=== PATIENT | female | born 1950 | race Caucasian/White ===

== ENCOUNTER → 2017-07-05 | Day surgery (SDC) | payer MEDICARE, OTHER ==
[2017-07-04 11:04] LABS: BASOPHILS % 0.5 % (0.0-1.0); EOSINOPHILS # (AUTO) 0.1 (0.0-0.4); EOSINOPHILS % 1.3 % (0.0-6.0); HEMATOCRIT 39.7 % (34.2-44.1); HEMOGLOBIN 13.3 g/dL (12.0-16.0); LYMPHOCYTES # (AUTO) 1.4 (1.0-3.2); LYMPHOCYTES % 35.5 % (18.0-39.1); MEAN CORPUSCULAR HEMOGLOBIN 31.4 pg (28-32); MEAN CORPUSCULAR HGB CONC 33.5 g/dL (31-35); MEAN CORPUSCULAR VOLUME 93.9 fL (81-99); MONOCYTES # (AUTO) 0.3 (0.2-0.8); MONOCYTES % 7.3 % (4.4-11.3); NEUTROPHILS # (AUTO) 2.1 (2.1-6.9); NEUTROPHILS % 55.1 % (38.7-80.0); PLATELET COUNT 196 x10e3/uL (140-360); RED BLOOD COUNT 4.23 x10e6/uL (3.6-5.1); RED CELL DISTRIBUTION WIDTH 13.3 % (11.7-14.4)
[~2017-07-05] MED LIST: BUPIVACAINE HCL 0.5% 10ML MPF VIAL INJ ONE; CEFAZOLIN SOD 1 GM VIAL ONE; CYMBALTA60 MG PO; DEXAMETHASONE SOD PHOS INJ 4 MG/ML VIAL ONE; EPHEDRINE SULFATE INJ 50 MG/10 ML SYR ONE; EYE LUBRICANT OPTH OINT 3.5GM TUBE OP ONE; FENTANYL CITRATE/PF 100MCG/2 ML INJ ONE; LIDOCAINE 1% W/EPINEPHRINE 20 ML VIAL ONE; LIDOCAINE HCL 2% LOCAL INJ 5 ML SDV VIAL INJ ONE; MIDAZOLAM HCL 2 MG/2 ML VIAL ONE; MUPIROCIN 2% OINT 22 GM TUBE ONE; ONDANSETRON HCL INJ 2 MG/ML VIAL ONE; POVIDONE IODINE 5% (OPTH) 30 ML BTL ONE; PROPOFOL IV EMULSION 10 MG/ML 20 ML VIAL ONE; SEVOFLURANE INHAL SOLN 250 ML PEN BTL ONE
--- OUTSIDE RECORDS SUMMARY | 2017-07-05 07:13 | XMS REPORT ---
Author Author [facility] Address Unknown Phone Unavailable Care Team Providers Care Circ[employer] Supervisor Name Role Phone ARIS MURPHY Unavailable Unavailable Problems This patient has no known problems. Allergies, Adverse Reactions, Alerts This patient has no known allergies or adverse reactions. Medications This patient has no known medications. Results Test Description Test Time Test Comments Text Results Atomic Results Result Comments CHEST 2 VIEWS [place] [address] Patient Name: VERA MCCOY MR #: [id number] : 1950 Age/Sex: 67/F Req #: [id number] Adm Physician: Ordered by: ARIS MURPHY MD Report #: [id number] Location: OR Room/Bed: Procedure: [id number] DX/CHEST 2 VIEWS Exam Date: 03/25/17 Exam Time: 1320 REPORT STATUS: Signed PROCEDURE: Frontal and lateral views of the chest. COMPARISON: None. INDICATIONS: PRE OPERATIVE CHEST X- RAY FOR SURGERY FOR CANCER IN THE NOSE FINDINGS: Lines/tubes: None. Lungs: The lungs are well inflated and clear. There is no evidence of pneumonia or pulmonary edema. Pleura: There is no pleural effusion or pneumothorax. Heart and mediastinum: The heart and the mediastinum are normal. Bones: No acute bony abnormality. IMPRESSION: No acute cardiopulmonary disease. Dictated by: Ismael Thurston M.D. on 2016 at 15:00 Electronically approved by: Ismael Thurston M.D. on 2016 at 15:00 Dictated By: ISMAEL THURSTON MD 1500 Transcribed By: PHYLLIS on 03/25/17 1500 COPY TO: ARIS MURPHY MD
--- NOTE | 2017-07-05 14:46 | Operative Report ---
DATE OF PROCEDURE: July 05, 2017 PREOPERATIVE DIAGNOSIS: Basal cell carcinoma of nose. POSTOPERATIVE DIAGNOSIS: Basal cell carcinoma of nose. PROCEDURE: Flap closure of right nose, 10 cm2. ANESTHESIA: General. HISTORY: The patient is a 67-year-old female who approximately 6 months ago underwent Mohs micrographic removal of a basal cell carcinoma involving the right ala and she had a nasolabial flap closure. The flap is quite bulky and is distorting the ala, and the patient wishes to have correction. The risks, benefits, and alternatives of treatments were discussed with the patient, and she is prepared to undergo the procedure as outlined. DETAILS OF PROCEDURE: Patient was marked preoperatively in the holding area. She was brought to the operating theater after the induction of adequate general anesthesia. She was prepped and draped in a supine position and a time-out was performed. The flap was marked out both on the ala as well as the right cheek. The area was then infiltrated with 1% Xylocaine with epinephrine. After waiting an appropriate amount time for maximum vasoconstrictive effect, the flap on the ala was incised with 2 vertical limbs and a horizontal limb in the alar crease. The flap was then elevated and bleeding was controlled using the electrocautery. The flap was judiciously de-fatted of all subcutaneous tissues and then placed back into position. It was noted to be larger than the defect, and for this reason, sharp excision of the edges was performed until the flap measured the exact dimensions and contour of the defect. The wound was irrigated and the flap was inset using 6-0 nylon in an interrupted fashion. At this point, the redundant skin and subcutaneous tissue of the cheek was measured out. The previous nasolabial incision was incised through the skin and subcutaneous tissues. Bleeding was controlled using the electrocautery. The right cheek was then elevated and then de-fatted. At this point, the cheek was then re-inset using 6-0 nylon in an interrupted fashion, and this corrected the bulkiness and contour deformity. The incision was noted to be hemostatic. Bactroban ointment was applied to the incision. Sterile dressing was applied. The estimated blood loss for procedure was minimal and the patient was brought to recovery room in satisfactory condition and then discharged with a postoperative instruction sheet as well as a followup appointment. Job#: [id number] VAS
== END | disposition home or self-care (01) ==
LOC: OR 07:11
PROVIDERS: ATTEND Plastic Surgery
DX: Z48.3 Aftercare following surgery for neoplasm (principal); Z85.828 Personal history of other malignant neoplasm of skin; I44.4 Left anterior fascicular block; F32.9 Major depressive disorder, single episode, unspecified; Z01.812 Encounter for preprocedural laboratory examination; Z87.891 Personal history of nicotine dependence
CPT/HCPCS: 17999; 36415; 85025; J0690; J1100; J2001; J2250; J2405